=== PATIENT | female | born 1985 | race Caucasian/White ===

== ENCOUNTER 2019-04-25 20:37 | Emergency (ER) | payer OTHER ==
[~2019-04-25] VITALS: Ht 165.1 cm; Wt 67.6 kg
[2019-04-25 20:58] VITALS: Ht 165.1 cm; Wt 67.6 kg
[2019-04-25 23:59] VITALS: BP 115/68
== END 2019-04-25 23:59 | disposition home or self-care (01) ==
LOC: ED 20:37
DX: T15.91XA Foreign body on external eye, part unspecified, right eye, initial encounter (principal); W45.8XXA Other foreign body or object entering through skin, initial encounter; Y93.89 Activity, other specified; Y92.89 Other specified places as the place of occurrence of the external cause; Y99.8 Other external cause status
CPT/HCPCS: J7030